=== PATIENT | male | born 2000 | race Caucasian/White ===

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

== ENCOUNTER 2021-05-13 16:19 | Emergency (ER) | payer OTHER ==
[2021-05-13 19:39] VITALS: TEMP 97.3
--- NOTE | 2021-05-13 21:36 | ED ---
General Adult HPI - General Chief complaint: Upper Respiratory Infection Stated complaint: Cold Symptoms Time Seen by Provider: 05/13/21 21:26 Source: patient, RN notes reviewed Mode of arrival: ambulatory Limitations: no limitations - History of Present Illness Initial comments: 20-year-old male presents to the emergency Department with complaints of nasal congestion and cough, onset yesterday. Patient is concerned about close contact Covid exposure. Denies fever, chills, chest pain, shortness of breath, difficulty breathing, nausea, vomiting, loss of appetite, altered taste and smell, - Related Data Home Medications Medication Instructions Recorded Confirmed Famotidine [Pepcid] 20 mg PO DAILY 06/22/19 06/26/19 ondansetron HCL [Zofran] 8 mg PO Q12H PRN 06/22/19 06/26/19 Previous Rx's Medication Instructions Recorded Pantoprazole Sodium [Protonix] 20 mg PO DAILY #30 tablet. 07/05/19 Allergies Allergy/AdvReac Type Severity Reaction Status Date / Time amoxicillin AdvReac Rash/Hives Verified 05/13/21 19:38 Review of Systems ROS Statement: Those systems with pertinent positive or pertinent negative responses have been documented in the HPI. ROS Other: All systems not noted in ROS Statement are negative. Past Medical History Past Medical History: No Reported History Additional Past Medical History / Comment(s): ABDOMINAL PAIN, History of Any Multi-Drug Resistant Organisms: None Reported Past Surgical History: No Surgical Hx Reported Past Anesthesia/Blood Transfusion Reactions: No Reported Reaction Past Psychological History: Depression Smoking Status: Never smoker Past Alcohol Use History: None Reported Past Drug Use History: None Reported - Past Family History Father Family Medical History: No Reported History General Exam Limitations: no limitations (L developed, well-nourished male in no acute distress. Initial temperature 97.3, pulse 101, respirations 18, blood pressure 122/76, pulse ox 100% on room air.) General appearance: alert, in no apparent distress ENT exam: Present: normal exam, normal oropharynx, mucous membranes moist, TM's normal bilaterally Respiratory exam: Present: normal lung sounds bilaterally. Absent: respiratory distress, wheezes, rales, rhonchi, stridor Cardiovascular Exam: Present: regular rate, normal rhythm, normal heart sounds. Absent: systolic murmur, diastolic murmur, rubs, gallop, clicks GI/Abdominal exam: Present: soft, normal bowel sounds. Absent: distended, tenderness, guarding, rebound, rigid Neurological exam: Present: alert, oriented X3, CN II-XII intact Psychiatric exam: Present: normal affect, normal mood Skin exam: Present: warm, dry, intact, normal color. Absent: rash Course Vital Signs 05/13/21 05/13/21 19:37 22:14 Temperature 97.3 F L 97.3 F L Pulse Rate 101 H 91 Respiratory 18 16 Rate Blood Pressure 122/76 120/73 O2 Sat by Pulse 100 97 Oximetry Medical Decision Making - Medical Decision Making 20-year-old male presents to the emergency department for evaluation after close contact exposure with a Covid-positive individual. On exam, patient is well- appearing and in no acute distress. Vital signs are stable. Physical exam findings are negative with the exception of mild nasal congestion. Covid test is negative. Patient is advised to retest in 2-3 days if symptoms persist. He will be discharged home to follow up with his PCP for recheck. Return parameters were discussed in detail. Patient verbalizes understanding and agrees with this plan. This patient's care was discussed my attending Dr. Porter. - Lab Data Lab Results 05/13/21 Range/Units 19:40 Coronavirus (PCR) Not Detected (Not Detectd) Disposition Clinical Impression: Exposure to COVID-19 virus, Upper respiratory infection, viral Disposition: HOME SELF-CARE Condition: Stable Instructions (If sedation given, give patient instructions): Upper Respiratory Infection (ED) Additional Instructions: Your COVID test was negative. However, as long as you continue to have symptoms of an upper respiratory infections (cough, congestion, nasal drainage, etc), you should wear a mask. Retest in 2-3 days if symptoms persist; home kits are widely available. May take tylenol or motrin for fever or body aches; decongestant for upper respiratory symptoms. Follow up with your PCP for a recheck as needed. Return to the emergency department with any new, worsening, or concerning symptoms. Is patient prescribed a controlled substance at d/c from ED?: No Referrals: Keesha Shields III, MD [Primary Care Provider] - 1-2 days Time of Disposition: 22:06
[2021-05-13 22:16] VITALS: BP 120/73; PULSE 91; RESP 16
== END 2021-05-13 22:14 | disposition home or self-care (01) ==
LOC: EC 16:19
DX: J06.9 Acute upper respiratory infection, unspecified (principal); Z20.822 Contact with and (suspected) exposure to COVID-19; Z88.0 Allergy status to penicillin
CPT/HCPCS: 87635; 99283